=== PATIENT | male | born 1995 | race American Indian/Alaskan Native ===

== ENCOUNTER 2020-08-13 07:32 | Day surgery (SDC) | payer MEDICARE ==
[~2020-08-13 07:32] MED LIST: BUPIVACAINE/PF (0.25%) 2.5 MG/ML 30 ML VIAL INFILTRATI ONE; LIDOCAINE (1%) 10 MG/1 ML VIAL 20 ML MDV ONE
[2020-08-13] MEDS ORDERED: MIDAZOLAM 2 MG/2 ML INJ IV NR (07:47)
[2020-08-13] MEDS ORDERED: LACTATED RINGERS 1,000 ML IV SCH (08:00)
[2020-08-13] MEDS ORDERED: ceFAZolin/STERILE WATER 2 GM/20 ML SYRINGE IV NR (08:00)
[2020-08-13] MEDS ORDERED: LIDOCAINE PF 100 MG/5 ML (CARDIAC SYRINGE) IV ONE (08:09)
[2020-08-13] MEDS ORDERED: propofoL 200 MG/20 ML VIAL IV ONE ×2 (08:09→09:25)
[2020-08-13] MEDS ORDERED: ONDANSETRON 4 MG/2 ML INJ IV PRN (08:16)
[2020-08-13] MEDS ORDERED: HYDROmorphone 1 MG/1 ML INJ IV PRN ×2 (08:16)
--- NOTE | 2020-08-13 08:17 | Anesthesia Day of Surgery ---
Anesthesia Day of Surgery - Day of Surgery Patient Examined: Yes Patient H&P Reviewed: Yes Patient is NPO: Yes
--- NOTE | 2020-08-13 08:18 | Anesthesia Consultation ---
Anesthesia Consult and Med Hx Date of service: 08/13/20 - Airway Anesthetic Teeth Evaluation: Good ROM Head & Neck: Adequate Mental/Hyoid Distance: Adequate Mallampati Class: Class II Intubation Access Assessment: Good - Pre-Operative Health Status ASA Pre-Surgery Classification: ASA3 Proposed Anesthetic Plan: MAC (GA if needed) - Pulmonary Hx Smoking: No Hx Asthma: Yes (YOUNGER- NO INHALERS) COPD: No Hx Pneumonia: No Hx Sleep Apnea: No (HIGH RISK [place] PRESCREEN) - Cardiovascular System Hx Hypertension: Yes Hx Heart Attack/AMI: No Hx Pacemaker: No Hx Internal Defibrillator: No Hx Heart Murmur: No - Central Nervous System Hx Seizures: No Hx Back Pain: No Hx Psychiatric Problems: Yes (Depression/ADHD) - Endocrine Hx Cirrhosis: No Hx Liver Disease: No - Hematic Hx Anemia: No Hx Sickle Cell Disease: No - Other Systems Hx Alcohol Use: No Hx Substance Use: No Hx Cancer: No Hx Obesity: Yes
[2020-08-13] MEDS ORDERED: fentaNYL 100 MCG/2 ML INJ ONE (08:28)
[2020-08-13] MEDS ORDERED: MIDAZOLAM 5 MG/5 ML INJ MDV IV ONE (08:45)
[2020-08-13] MEDS ORDERED: KETAMINE/STERILE WATER 50 MG/ML SYRINGE ONE (08:45)
[2020-08-13] MEDS ORDERED: SODIUM CHLORIDE 0.9% 100 ML ONE (09:08)
[2020-08-13] MEDS ORDERED: BUPIVACAINE/PF (0.25%) 2.5 MG/ML 30 ML VIAL INFILTRATI ONE (09:18)
[2020-08-13] MEDS ORDERED: LIDOCAINE (1%) 10 MG/1 ML VIAL 20 ML MDV INFILTRATI ONE (09:19)
[2020-08-13] MEDS ORDERED: SODIUM CHLORIDE 0.9% IRR 1,500 ML BOTTLE IR ONE (09:19)
[2020-08-13] MEDS ORDERED: BACITRACIN ZINC OINT 28.4 GM TP ONE ×2 (09:37→09:52)
--- NOTE | 2020-08-13 10:23 | Short Stay Summary ---
Short Stay Documentation Date of service: 08/13/20 - History Principal diagnosis: soft tissue mass posterior scalp and neck H&P: obtained from office - Allergies and Medications Current Medications: Allergies No Known Allergies Allergy (Unverified 12/08/14 13:12) Home Medications Medication Instructions Recorded Confirmed Last Taken Type Dextroamphetamine/Amphetamine 25 mg PO Q24HR 08/05/20 08/05/20 Unknown History [Adderall Xr 25 mg Capsule] lisinopriL [Lisinopril] 20 mg PO DAILY 08/05/20 08/05/20 Unknown History Active Medications Cefazolin Sodium (Cefazolin/Sterile Water 2 Gm/20 Ml Syringe) 2 gm IV PREOP NR Stop: 08/13/20 21:00 Hydromorphone HCl (Hydromorphone 1 Mg/1 Ml Inj) 0.25 mg IV Q10MIN PRN PRN Reason: Pain, Moderate (4-6) Stop: 08/13/20 23:00 Hydromorphone HCl (Hydromorphone 1 Mg/1 Ml Inj) 0.5 mg IV Q10MIN PRN PRN Reason: Pain , Severe (7-10) Stop: 08/13/20 23:00 Lactated Ringer's (Lactated Ringers) 1,000 mls @ 100 mls/hr IV DIRECT LORETTA Midazolam HCl (Midazolam 2 Mg/2 Ml Inj) 2 mg IV ONCE NR Stop: 08/13/20 18:00 Ondansetron HCl (Ondansetron 4 Mg/2 Ml Inj) 4 mg IV ONCE PRN PRN Reason: Nausea And Vomiting Stop: 08/13/20 16:00 - Brief post op/procedure progress note Date of procedure: 08/13/20 Pre-op diagnosis: soft tissue mass posterior neck and scalp Post-op diagnosis: other (Chronic hidradenitits without infection) Procedure: Excision of hidradenitis lesions of posterior scalp and neck Anesthesia: MAC, local Findings: 1. Posterior neck- 5cm chronically inflamed skin and subcutaneous tissue consistent with hidradenitis without active infection 2. Left posterior scalp - 0.9 cm chronically inflamed skin and subcutaneous tissue consistent with hidradenitis without active infection Surgeon: WESTON HUNG Estimated blood loss: other (30cc) Pathology: list (1. mass of posterior neck, 2. mass of posterior left scalp) Specimen disposition: to lab Condition: stable - Hospital course Hospital course: Pt observed in PACU and discharged to home in stable condition when criteria met - Disposition Condition at discharge: Good Disposition: [id number] TO HOME OR SELFCARE Short Stay Discharge Plan Activity: other (avoid flexing neck (bending it forward), no driving if taking prescription pain medications) Diet: regular Wound: per your surgeon's advice (Remove bandage and clean skin with soap and water in shower. Pat dry and cover with new dry dressing. Perform dressing changes and skin care daily. Do not remove sutures.) Additional Instructions: You may use over the counter tylenol for post operative pain. A prescription for ibuprofen 800mg has been sent to your [facility] pharmacy and you have also been given a prescription for tramadol (stronger pain medication). You may use the tramadol if your pain is not controlled with ibuprofen or tylenol. You may also apply an ice pack to the area several times a day for 10 minutes at a time. Do not drive if taking Tramadol. Follow up with: ALLEN JO MD [Primary Care Provider] - 7 Days WESTON HUNG DO [Staff Physician] - 10 Days Prescriptions: Ibuprofen [Motrin 800 MG tab] 800 mg PO Q8HR PRN #30 tablet PRN Reason: Pain, Moderate (4-6) traMADoL [Ultram 50 MG tab] 25 mg PO Q6HR PRN #15 tablet PRN Reason: Pain , Severe (7-10)
--- NOTE | 2020-08-13 15:24 | Post Anesthesia Evaluation ---
- Post Anesthesia Evaluation Patient Participated: Yes Airway Patent: Yes Stable Respiratory Function: Yes Nausea/Vomiting: No Temp > 96.8F: Yes Pain Manageable: Yes Adequeate Hydration: Yes Anesthesia Complications: No Block Receding Appropriately: Not Applicable Patient on Ventilator: No
[2020-08-13 18:52] VITALS: BP 148/88
--- NOTE | 2020-08-14 11:36 | Operative Report ---
Operative Report Operative Report: Date of procedure: 08/13/20 Pre-op diagnosis: soft tissue mass posterior neck and scalp Post-op diagnosis: other (Chronic hidradenitits without infection) Procedure: Excision of hidradenitis lesions of posterior scalp and neck Anesthesia: MAC, local Findings: 1. Posterior neck- 5cm chronically inflamed skin and subcutaneous tissue consistent with hidradenitis without active infection 2. Left posterior scalp - 0.9 cm chronically inflamed skin and subcutaneous tissue consistent with hidradenitis without active infection Surgeon: WESTON HUNG Estimated blood loss: other (30cc) Pathology: list (1. mass of posterior neck, 2. mass of posterior left scalp) Specimen disposition: to lab Condition: stable Hospital course: Pt observed in PACU and discharged to home in stable condition when criteria met Condition at discharge: Good HPI and indication: Patient is a 24-year-old male who presented to the surgery clinic with complaints of soft tissue mass of his posterior neck and scalp. He stated that those areas became inflamed often and would drain fluid. He also has a history of hidradenitis suppurativa. Upon exam the patient had what appeared to be a cyst on his right posterior scalp as well as a raised lesion of his posterior neck which appeared to be a soft tissue mass. As he was symptomatic it was recommended that these be removed. All risk, benefits, terms of surgery discussed with the patient questions were answered. It was discussed with the patient that these incisions may not be able to be closed with absorbable stitches and may need stitches that were removed in the office. The possibility of open wound was also discussed with him. Consent was obtained in the office. Procedure in detail: The patient identified the preoperative area taken back to the operating room placed on the operating room table in prone position. Prior to bringing the patient back the areas in question were marked and confirmed with the patient. After anesthesia was induced, the hairs along the neck and posterior scalp were clipped. The areas were prepped and draped in usual sterile fashion a timeout was performed. First I turned my attention to excising the lesion of the posterior neck. Local anesthetic was infiltrated to skin at the intended incision site. An elliptical incision was made around this raised lesion using 15 blade. Dissection was carried down through skin subcutaneous tissue using electrocautery. This mass appeared to be inflamed epidermal and subcutaneous tissue consistent with chronic hidradenitis without infection. A wide local excision was performed until normal subcutaneous tissue was encountered. This area was completely excised and passed off the table as a specimen. It measured 5 cm in longest dimension. The wound was irrigated and hemostasis ensured. The wound was packed with a dry 4 x 4 gauze. I then turned my attention to excising the left posterior scalp cyst. Local anesthetic was infiltrated to skin at the intended incision site. An elliptical incision was made around the site using 15 blade and dissection carried down through skin and subcutaneous tissues electrocautery. During the dissection it was evident that this was also chronically inflamed skin and subcutaneous tissue consistent with hidradenitis without active infection. The total area measured approximately 0.9 cm. The was passed off the table as a specimen. The wound was irrigated and hemostasis carefully ensured. The wounds were approximated using single interrupted 3-0 Prolene sutures. There was a third area in question that the patient identified preoperatively. This was just superior to the raised 5 cm mass on the posterior neck. After excision of the posterior neck mass, that area was no longer apparent as it was likely included in the wide local excision. Once the skin was approximated, bacitracin was applied to the skin. A cover site dressing was then applied. The patient tolerated the procedure well. At the end of the case all sponge, instrument, sharp counts were correct x2. Patient was awoken from anesthesia and transferred to the stretcher in supine position. He was taken to PACU in stable condition.
== END 2020-08-13 07:33 | disposition home or self-care (01) ==
LOC: OR 07:32
PROVIDERS: ATTEND Surgery
DX: R22.1 Localized swelling, mass and lump, neck (principal); R22.0 Localized swelling, mass and lump, head; L73.2 Hidradenitis suppurativa; L72.0 Epidermal cyst; L02.818 Cutaneous abscess of other sites; I10 Essential (primary) hypertension; J45.909 Unspecified asthma, uncomplicated; F32.9 Major depressive disorder, single episode, unspecified; Z20.822 Contact with and (suspected) exposure to COVID-19; Z79.899 Other long term (current) drug therapy; Z98.890 Other specified postprocedural states
CPT/HCPCS: 11421; 11426; 88307; J0690; J2001; J2250; J2704; J3010; J3490; J7120; U0003